=== PATIENT | female | born 1995 | race African-American/Black ===

== ENCOUNTER 2016-10-14 22:31 | Emergency (ER) | payer OTHER ==
[~2016-10-14] VITALS: Ht 160 cm; Wt 92.1 kg
[~2016-10-14 22:31] MED LIST: AFRIN15 ML NASAL; ALBUTEROL SULF8.5 GM INH; AMITRIPTYLINE25 MG ORAL; AMOXICILLIN500 MG ORAL; AZITHROMYCIN250 MG ORAL; BENTYL10 MG ORAL; COLACE100 MG ORAL; CYCLOBENZAPRINE10 MG ORAL; FERROUS SULFAT325 MG ORAL; FLONASE1 SPRAYS NASAL; IBUPROFEN600 MG ORAL; LEVAQUIN500 MG ORAL; MACROBID100 MG ORAL; NEXAFED30 MG ORAL; NKM; NORCO 5-325 TA1 EACH ORAL; PREDNISONE10 MG ORAL; PROMETHAZINE-C118 M1 ORAL; PROMETHAZINE-D118 ML ORAL; ROBITUSSIN DM5 ML ORAL; ZOFRAN ODT4 MG ORAL; ZOFRAN4 M1 ORAL
[2016-10-14] MEDS ORDERED: NKM (22:59)
[2016-10-14] MEDS ORDERED: ACETAMINOPHEN-1 EAC1 ORAL (23:40)
[2016-10-14] MEDS ORDERED: ZITHROMAX250 MG ORAL (23:40)
[2016-10-15] VITALS: BP 120/82
--- NOTE | 2016-10-15 | Emergency Room Report ---
History of Present Illness General Chief Complaint: General Complaint Present Illness HPI 20 YOF walk-in with 2 weeks of intermittent headache, body aches, chills. Got flu shot. History of asthma. Now with productive cough for last 5 days. Denies SOB, chest tightness. Using albuterol as needed for cough. No sick contacts. Taking ibuprofen 2x a day for body aches. Allergies: Coded Allergies: No Known Allergies (Unverified , 06/03/13) Patient History Past Medical History: asthma Past Surgical History: none Pertinent Family History: none Social History: Denies: alcohol use, drug use, smoking Last Menstrual Period: 10/04/16 Now: No Immunizations: UTD Reviewed Nursing Documentation: PMH: Agreed, PSxH: Agreed Nursing Documentation-PMH Hx Asthma: Yes - Bronchitis Hx Diabetes: Yes Hx Seizures: Yes Review of Systems All Other Systems: negative except mentioned in HPI Physical Exam Vital Signs Date Time Temp Pulse Resp B/P Pulse Ox O2 Delivery O2 Flow Rate FiO2 10/14/16 22:54 97.9 82 16 136/87 99 Room Air Sp02 EP Interpretation: reviewed, normal General Appearance: normal inspection, well appearing, no apparent distress, alert, GCS 15, non-toxic Head: normocephalic, atraumatic Eyes: bilateral eye EOMI, bilateral eye PERRL ENT: normal ENT inspection, hearing grossly normal, normal pharynx, no angioedema, normal voice, TMs + canals normal, uvula midline, moist mucus membranes Neck: normal inspection, full range of motion, supple, no bony tend Respiratory: normal inspection, lungs clear, normal breath sounds, no respiratory distress, no retraction, no accessory muscle use, no wheezing, speaking full sentences Cardiovascular #1: regular rate, rhythm, no edema Gastrointestinal: normal inspection, normal bowel sounds, non tender, soft, no guarding, no hernia Musculoskeletal: normal inspection, back normal, normal range of motion, Gabo' s Sign negative Neurologic: normal inspection, alert, oriented x3, responsive, legal investigator III-XII nml as tested, motor strength/tone normal, speech normal Psychiatric: normal inspection, judgement/insight normal, mood/affect normal Skin: normal inspection, normal color, no rash Lymphatic: normal inspection Medical Decision Making Diagnostic Impression: Primary Impression: Flu Additional Impressions: Bronchitis Community acquired pneumonia ER Course Flu-like illness VSS. Afebrile - out of window for tamiflu - Rx T#3 for headache, myalgias in addition to ibuprofen - Push fluids Productive cough - history of asthma - Rx Zpack given chills, productive cough, to cover for possible CAP PMD followup DC home Last Vital Signs Date Time Temp Pulse Resp B/P Pulse Ox O2 Delivery O2 Flow Rate FiO2 10/14/16 22:54 97.9 82 16 136/87 99 Room Air Status: improved Disposition: HOME, SELF-CARE Condition: Improved Scripts Azithromycin* (ZITHROMAX*) 250 Mg Tablet 250 MG ORAL DAILY, #6 TAB 0 Refills Take two tables once daily for 1 day, then one tablet once daily for 4 days. Prov: RADHA TOM M.D. 10/14/16 Acetaminophen With Codeine (T#3) (TYLENOL #3 TAB*) Y Tab 1 TAB ORAL Q8H Y for cough, headache, #20 TAB Prov: RADHA TOM M.D. 10/14/16 Patient Instructions: Influenza, Adult, [id number] Additional Instructions: - Drink plenty of liquids - Take Ibuprofen up to 3x a day with food - Take also Tylenol with codeine for pain, cough - use your albuterol inhaler during the day for cough - See your primary care doctor in 1 week - Finish ALL azithromycin Z-pack antibiotic RADHA TOM M.D. October 15, 2016 00:00
== END 2016-10-15 00:07 | disposition home or self-care (01) ==
LOC: EDBD 23:00 → EMR 23:00
DX: J11.1 Influenza due to unidentified influenza virus with other respiratory manifestations (principal); J40 Bronchitis, not specified as acute or chronic; J18.9 Pneumonia, unspecified organism; R51 Headache; R05 Cough; J45.909 Unspecified asthma, uncomplicated; E11.9 Type 2 diabetes mellitus without complications; Z86.69 Personal history of other diseases of the nervous system and sense organs
CPT/HCPCS: 99284

== ENCOUNTER 2016-11-02 22:39 | Emergency (ER) | payer OTHER ==
[~2016-11-02] VITALS: Ht 160 cm; Wt 92.1 kg
[~2016-11-02 22:39] MED LIST changes: +ACETAMINOPHEN-1 EAC1 ORAL; +ZITHROMAX250 MG ORAL
[2016-11-02 23:05] VITALS: BP 105/67
[2016-11-02 23:07] LABS: APPEARANCE,URINE CLEAR; KETONES,URINE NEGATIVE (NEGATIVE); LEUKOCYTE ESTERASE ,URINE 2+ (NEGATIVE); NITRITE,URINE NEGATIVE (NEGATIVE); PH,URINE 6 (4.5-8.0); PROTEIN,URINE 1+ (NEGATIVE); UROBILINOGEN,URINE 1 MG/DL (0.0-1.0)
[2016-11-02 23:11] LABS: BACTERIA,URINE FEW /HPF; RBC,URINE 0-2 /HPF (0 - 2); SQUAMOUS EPITHELIAL CELL,UR FEW /LPF (NONE/OCC)
[2016-11-03] MEDS ORDERED: NEOSPORIN + P14.2 GM TP (00:18)
[2016-11-03 00:20] VITALS: BP_SYST 105; BP_SYST 110; BP_DIAS 67; BP_DIAS 69
--- NOTE | 2016-11-03 00:47 | Emergency Room Report ---
History of Present Illness General Chief Complaint: Female Urogenital Problems Source: Patient Present Illness HPI 20YOF presents with burning to outer area of vagina when peeing for 2 days. Started after she believes she accidentally cut herself with long nails when wiping with public restroom "poor quality" toilet paper because she saw bleeding right after. C/o white discharge that "smells funny to me." Denies history of STDs. Sexually active usign condoms with partner for 4 years. Recently finished Zpack for "a cold." Allergies: Coded Allergies: No Known Allergies (Unverified , 06/03/13) Patient History Past Medical History: none Past Surgical History: none Pertinent Family History: none Social History: Denies: alcohol use, drug use, smoking Last Menstrual Period: OCTOBER 02 Now: No Immunizations: UTD Reviewed Nursing Documentation: PMH: Agreed, PSxH: Agreed Nursing Documentation-PMH Hx Asthma: Yes Hx Diabetes: Yes Hx Seizures: Yes Review of Systems All Other Systems: negative except mentioned in HPI Physical Exam Vital Signs Date Time Temp Pulse Resp B/P Pulse Ox O2 Delivery O2 Flow Rate FiO2 11/02/16 22:44 98.8 78 20 105/67 99 11/02/16 23:05 Room Air Sp02 EP Interpretation: reviewed, normal General Appearance: normal inspection, well appearing, no apparent distress, alert Head: atraumatic ENT: normal ENT inspection, hearing grossly normal, normal voice Neck: normal inspection, full range of motion, supple, no bony tend Respiratory: normal inspection, lungs clear, normal breath sounds, no respiratory distress, no retraction, no wheezing Cardiovascular #1: regular rate, rhythm, no edema Gastrointestinal: normal inspection, normal bowel sounds, non tender, soft, no guarding, no hernia Genitourinary: no CVA tenderness, other - Pelvic done with YOMI Mccarty as nuisance wildlife trapper : there is a 1cm abrasion posterior external vaginal area. No vesicles, blisters , warts other elsions. Scant pelvic fluid Musculoskeletal: normal inspection, back normal, normal range of motion, Gabo' s Sign negative Neurologic: normal inspection, alert, oriented x3, responsive, mold checker III-XII nml as tested, DTRs symmetric, speech normal Psychiatric: normal inspection, judgement/insight normal, mood/affect normal Skin: normal inspection, normal color, no rash Medical Decision Making Diagnostic Impression: Primary Impression: Dysuria ER Course Not UA negative for UTI Wet mount negative for trich, yeast, clue cells Likely abrasion from accidental cut with her nails/poor quality tissue paper Rx Neosporin Advised to keep area clean, dry PMD followup Last Vital Signs Date Time Temp Pulse Resp B/P Pulse Ox O2 Delivery O2 Flow Rate FiO2 11/03/16 00:20 98.8 88 20 105/67 99 Room Air Status: improved Disposition: HOME, SELF-CARE Condition: Improved Scripts Neomy Sulf/Polymyx B Sulf/Pram (NEOSPORIN + PAIN RELIEF CREAM) 14.2 Gm Cream..g. 14.2 GM TP BID for 7 Days, #1 UNIT Prov: RADHA TOM M.D. 11/03/16 Referrals: [facility],REFERRING (PCP) Additional Instructions: - Keep affected area clean/dry - Apply neosporin cream 2x a day until healed RADHA TOM M.D. November 03, 2016 00:47
== END 2016-11-03 00:20 | disposition home or self-care (01) ==
LOC: EDBD 22:39 → EMR 22:58
DX: R30.0 Dysuria (principal); E11.9 Type 2 diabetes mellitus without complications; J45.909 Unspecified asthma, uncomplicated
CPT/HCPCS: 81003; 81025; 87210; 99283

== ENCOUNTER 2016-12-06 13:04 | Emergency (ER) | payer OTHER ==
[~2016-12-06] VITALS: Ht 160 cm; Wt 92.1 kg
[~2016-12-06 13:04] MED LIST changes: +NEOSPORIN + P14.2 GM TP
[2016-12-06] MEDS ORDERED: PROMETHAZI6.25 MG/1 ORAL (13:35)
[2016-12-06] MEDS ORDERED: AMOXICILLIN500 MG ORAL (13:35)
[2016-12-06 13:37] VITALS: BP 99/76
[2016-12-06 13:40] VITALS: BP 99/76
--- NOTE | 2016-12-06 13:50 | Emergency Room Report ---
History of Present Illness General Chief Complaint: Upper Respiratory Illness Source: Patient Present Illness [facility] The patient is a 21-year-old female who denies any medical history presenting for sore throat and cough for the past 2 weeks. Pain is described as 7/10 dull ache to the back of the throat and does not radiate. Worse with cough. She was seen at another facility one week prior for same complaint and given motrin with cough medication which did not help. Pain has now worsened. She admits to subjective fevers. She denies any other symptoms including headache, neck pain, neck stiffness, shortness of breath Allergies: Coded Allergies: No Known Allergies (Unverified , 06/03/13) Patient History Past Medical History: see triage record Pertinent Family History: none Last Menstrual Period: 11/11/16 Now: No Reviewed Nursing Documentation: PMH: Agreed, PSxH: Agreed Nursing Documentation-PMH Hx Asthma: Yes Hx Diabetes: Yes Hx Seizures: Yes Review of Systems All Other Systems: negative except mentioned in HPI Physical Exam Vital Signs Date Time Temp Pulse Resp B/P Pulse Ox O2 Delivery O2 Flow Rate FiO2 12/06/16 13:08 98.1 74 15 99/76 97 Room Air Sp02 EP Interpretation: reviewed, normal General Appearance: no apparent distress, alert, GCS 15, non-toxic Head: normocephalic, atraumatic Eyes: bilateral eye PERRL, bilateral eye normal inspection ENT: hearing grossly normal, no angioedema, normal voice, TMs + canals normal, uvula midline, tonsillar swelling, pharyngeal erythema, tonsillar exudate Neck: full range of motion, supple/symm/no masses Respiratory: chest non-tender, lungs clear, normal breath sounds, no wheezing, speaking full sentences Cardiovascular #1: regular rate, rhythm, no edema Genitourinary: normal inspection, no CVA tenderness Musculoskeletal: back normal, gait/station normal, normal range of motion, non- tender Neurologic: alert, oriented x3, responsive, motor strength/tone normal, sensory intact, speech normal Psychiatric: judgement/insight normal, memory normal, mood/affect normal, no suicidal/homicidal ideation Skin: normal color, no rash, warm/dry, well hydrated Lymphatic: adenopathy Medical Decision Making PA Attestation Dr. Boudreaux is my supervising physician. Patient management was discussed with my supervising physician Diagnostic Impression: Primary Impression: Pharyngitis, acute Qualified Codes: J02.9 - Acute pharyngitis, unspecified ER Course The patient is a 21-year-old female who denies any medical history presenting for sore throat and cough Differential diagnosis include but not limited to pharyngitis, sinusitis, AOM, bronchitis, PNA Physical exam: Vitals within normal limits. Afebrile. No apparent distress HEENT exam: There is bilateral tonsillar edema, erythema, and exudate. Uvula midline. Moist mucous membranes. There is bilateral cervical lymphadenopathy. Lungs are clear to auscultation bilaterally Skin is warm and dry. No rash The patient will be discharged home with a prescription for cough medication, amoxicillin and is given ER precautions. Patient will followup with primary care Last Vital Signs Date Time Temp Pulse Resp B/P Pulse Ox O2 Delivery O2 Flow Rate FiO2 12/06/16 13:40 98.1 74 15 99/76 97 Room Air Status: improved Disposition: HOME, SELF-CARE Condition: Improved Scripts Promethazine Hcl (PROMETHAZINE HCL*) 6.25 Mg/5 Ml Syrup 5 ML ORAL Q6H, #120 ML 0 Refills Prov: OSCAR RICARDO 12/06/16 Amoxicillin* (AMOXIL*) 500 Mg Capsule 500 MG ORAL Q12HR, #20 CAP Prov: OSCAR RICARDO 12/06/16 Referrals: [facility],REFERRING (PCP) Patient Instructions: Pharyngitis Additional Instructions: I discussed my findings with the patient. All questions and concerns have been answered. Treatment and medication compliance have been addressed. I advised the patient that they need to follow up with PMD in 3-5 days. Return to ED if pain remains or worsens, cough worsens or remains, you notice blood in your sputum, you notice wheezing, you experience a fever, or if needed for any reason. Patient verbalized understanding of discharge instructions. OSCAR RICARDO Dec 06, 2016 13:50
== END 2016-12-06 13:41 | disposition home or self-care (01) ==
LOC: EMR 13:31
DX: J02.9 Acute pharyngitis, unspecified (principal); J45.909 Unspecified asthma, uncomplicated; E11.9 Type 2 diabetes mellitus without complications
CPT/HCPCS: 99284